=== PATIENT | male | born 1960 | race Caucasian/White ===

== ENCOUNTER → 2018-01-28 | Outpatient (CLI) | payer BC ==
[2018-01-28 10:01] LABS: BASO % 0.2 %; BASO ABS # 0.01 K/uL (0-0.2); EOS % 1.3 %; EOS ABS # 0.07 K/uL (0-0.5); HEMATOCRIT 44.1 % (42-52); HEMOGLOBIN 15.4 g/dL (14.0-18.0); IG# 0.01 K/uL (0.00-0.02); LYMPH % 7.6 %; LYMPH ABS # 0.42 K/uL (1.2-3.4); MEAN CELL VOLUME 89.1 fL (80-100); MEAN CORPUSCULAR HEMOGLOBIN 31.1 pg (25-34); MEAN CORPUSCULAR HGB CONC 34.9 g/dl (32-36); MEAN PLATELET VOLUME 10.7 fL (7.4-10.4); MONO % 11.3 %; MONO ABS # 0.63 K/uL (0.11-0.59); NEUT % 79.4 %; NEUT ABS # 4.42 K/uL (1.4-6.5); PLATELET COUNT 198 K/uL (130-400); RED CELL DISTRIBUTION WIDTH CV 12.9 % (11.5-14.5); WHITE BLOOD COUNT 5.56 K/uL (4.8-10.8)
[2018-01-28 10:35] LABS: ALBUMIN 3.7 gm/dl (3.4-5.0); ALT/SGPT 21 U/L (12-78); BLOOD UREA NITROGEN 12 mg/dl (7-18); CALCIUM 9.3 mg/dl (8.5-10.1); CARBON DIOXIDE 29 mmol/L (21-32); CREATININE 0.72 mg/dl (0.60-1.40); GLUCOSE 89 mg/dl (70-99); POTASSIUM 4.3 mmol/L (3.5-5.1); SODIUM 139 mmol/L (136-145)
[2018-01-28 10:40] LABS: ALKALINE PHOSPHATASE 73 U/L (45-117); AST/SGOT 12 U/L (15-37); TOTAL PROTEIN 7.2 gm/dl (6.4-8.2)
== END | disposition home or self-care (01) ==
LOC: C.LAB 09:13
PROVIDERS: ATTEND Internal Medicine Hematology
DX: C82.13 Follicular lymphoma grade II, intra-abdominal lymph nodes (principal); Z80.42 Family history of malignant neoplasm of prostate; Z11.59 Encounter for screening for other viral diseases

== ENCOUNTER → 2018-02-04 | Outpatient (CLI) | payer BC ==
--- NOTE | 2018-02-04 12:45 | DIAGNOSTIC IMAGING REPORT ---
ABDOMEN FOR HERNIA HISTORY: 57 years-old Male R19.03 Right lower quadrant abdominal swelling acute swelling of the right inguinal region COMPARISON: CT abdomen and pelvis 06/17/2014 TECHNIQUE: Multiple real-time sonographic images of the right inguinal region were obtained assessing grayscale appearance. FINDINGS: Small fat filled reducible right inguinal hernia is noted. No bowel loops are identified extending into the hernia sac. No focal fluid collections or suspicious mass lesions. IMPRESSION: Small reducible fat filled right inguinal hernia. The above report was generated using voice recognition software. It may contain grammatical, syntax or spelling errors. Electronically signed by: Brodie Hickey M.D. 02/04/2018 12:44 PM Dictated Date/Time: 02/04/2018 12:42 PM
== END | disposition home or self-care (01) ==
LOC: C.ULTRBC 12:00
PROVIDERS: ATTEND Internal Medicine
DX: R19.03 Right lower quadrant abdominal swelling, mass and lump (principal); K40.90 Unilateral inguinal hernia, without obstruction or gangrene, not specified as recurrent

== ENCOUNTER → 2018-03-10 | Day surgery (SDC) | payer BC ==
[2018-02-23 08:13] VITALS: Ht 190.5 cm; Wt 108.2 kg
--- NOTE | 2018-02-23 08:45 | PAT Medication Instructions ---
Service Date Feb 23, 2018. Current Home Medication List Metoprolol Succinate (Metoprolol Succinate ER), 1 TAB PO QAM Multivitamin (Multivitamin), 1 TAB PO QAM Medication Instructions For Your Scheduled Surgery - Hold the following medications the morning of surgery: Multivitamin (Multivitamin), 1 TAB PO QAM - Take the following medications the morning of surgery with a sip of water: Metoprolol Succinate (Metoprolol Succinate ER), 1 TAB PO QAM If you have any questions please call us at [phone] or [phone] or [phone]
--- NOTE | 2018-02-23 09:33 | DIAGNOSTIC IMAGING REPORT ---
CHEST 2 VIEWS ROUTINE CLINICAL HISTORY: PAT preoperative evaluation COMPARISON STUDY: 06/21/2016 FINDINGS: The bones soft tissues and hemidiaphragms are normal. The cardiomediastinal silhouette is normal. The lungs are clear. The pulmonary vasculature is normal. IMPRESSION: Negative chest. The above report was generated using voice recognition software. It may contain grammatical, syntax or spelling errors. Electronically signed by: Brandon Mccann M.D. 02/23/2018 9:32 AM Dictated Date/Time: 02/23/2018 9:32 AM
[~2018-03-10] VITALS: Ht 190.5 cm; Wt 108.2 kg
[~2018-03-10] MED LIST: FENTANYL CITRATE INJ 50 MCG/1 ML 2 ML VIAL ONE; LACTATED RINGER'S 1000ML 1,000 ML IV SCH; LIDOCAINE 2% 20 MG/ML 5ML SYR IV ONE; MIDAZOLAM HCL 1 MG/ML 2ML VIAL ONE; MULT-506 PO; PROPOFOL IV EMULSION 10 MG/ML 20 ML VIAL IV ONE; ROCURONIUM BROMIDE 10 MG/ML 5 ML VIAL IV ONE; TPRSR/25 PO
[2018-03-10 07:22] VITALS: BP 148/95; PULSE 75; TEMP 36.4; O2SAT 99
--- NOTE | 2018-03-10 08:22 | History & Physical Bridge Note ---
H&P Re-Evaluation Bridge Note: I have examined the patient, reviewed the History & Physical and in the interval since the performance of the History & Physical I have noted the following changes of clinical significance: No changes noted pt shaved right groin area( himself) 1 week ago area shows punctate area of redness without drainage suspicious of possible skin inflammation, do not want to proceed with elective surgery especially if mesh may need placed will cancel surgery for today reschedule natasha 2 weeks
== END | disposition home or self-care (01) ==
LOC: C.ACU 06:51
PROVIDERS: ATTEND Surgery
DX: K40.90 Unilateral inguinal hernia, without obstruction or gangrene, not specified as recurrent (principal); Z53.09 Procedure and treatment not carried out because of other contraindication

== ENCOUNTER → 2018-03-19 | Day surgery (SDC) | payer BC ==
[2018-03-18 08:13] VITALS: BMI 29.0
[~2018-03-19] VITALS: Ht 190.5 cm; Wt 108.2 kg
[~2018-03-19] MED LIST changes: +ATROPINE SULFATE 0.1 MG/ML 5ML SYR IV PRN; +BACITRACIN 50000 UNIT VIAL ONE; +BUPIVACAINE 0.5 % 5 MG/1 ML MPF 30ML VIAL ONE; +CEFAZOLIN SOD 1 GM VIAL ONE; +DEXAMETHASONE SOD INJ 4 MG/ML VIAL ONE; +EpHEDrine SULFATE 50MG/5ML SYR ONE; +EpHEDrine SULFATE INJ 50 MG/ML AMP IV PRN; +FENTANYL CITRATE INJ 50 MCG/1 ML 2 ML VIAL IV PRN; +GLYCOPYRROLATE INJ 0.2 MG/ML VIAL ONE; +HYDROmorphone INJ 2 MG/ML SYR/VIAL IV PRN; -LIDOCAINE 2% 20 MG/ML 5ML SYR IV ONE; +LIDOCAINE HCL 2% 2 ML VIAL (20MG/ML) ONE; +MoRPHine SULFATE 2 MG/ML CARP IV PRN; +NEOSTIGMINE METHYLSULFATE 5 MG/5 ML SYR ONE; +ONDANSETRON INJ 2 MG/ML 2 ML VIAL IV PRN; +ONDANSETRON INJ 2 MG/ML 2 ML VIAL ONE; +OXYC-57 PO; +OXYCODONE/ACETAMINOPHEN 5-325 TAB PO PRN; +PHENYLEPHRINE 100MCG/ML 5ML SYR IV PRN; +PHENYLEPHRINE 100MCG/ML 5ML SYR ONE; +PROMETHAZINE HCL INJ 12.5 MG in SODIUM CHLORIDE 0.9% 50ML 50 ML IV PRN
[2018-03-19 07:48] VITALS: Ht 190.5 cm; Wt 108.2 kg
--- NOTE | 2018-03-19 09:14 | History & Physical Bridge Note ---
H&P Re-Evaluation Bridge Note: I have examined the patient, reviewed the History & Physical and in the interval since the performance of the History & Physical I have noted the following changes of clinical significance: No changes noted pt marked SO at bedside all questions answered
--- NOTE | 2018-03-19 09:14 | Discharge Instructions ---
Discharge Instructions Date of Service Mar 19, 2018. Visit Reason for Visit: Right Inguinal Hernia Discharge Discharge Diagnosis / Problem: hernia repair Discharge Goals Goal(s): Decrease discomfort Activity Recommendations Activity Limitations: as noted below Lifting Limitations: no more than 10 pounds Shower/Bathe: tomorrow Driving or Machine Use: resume 3 days after discharge Anesthesia . Post Anesthesia Instructions: If you have had General Anesthesia or IV Sedation: * Do not drive today. * Resume driving when surgeon permits. * Do not make important decisions or sign legal documents today. * Call surgeon for: 1. Temperature elevations greater than 101 degrees F. 2. Uncontrollable pain. 3. Excessive bleeding. 4. Persistent nausea and vomiting. 5. Medication intolerance (nausea, vomiting or rash). * For nausea and vomiting use only clear liquids such as: tea, soda, bouillon until nausea subsides, then gradually increase diet as tolerated. * If you have any concerns or questions, call your surgeon's office. If physician is unavailable and it is an emergency, call 911 or go to the nearest emergency room. . Instructions / Follow-Up Instructions / Follow-Up Dr. Guerrier in 1 week, call [phone] if you need to schedule an appt or have any questions Ice right groin off and on every 20 minutes until bedtime Diet Recommendations Recommended Home Diet: no limitations Pending Studies Studies pending at discharge: no Medical Emergencies . Who to Call and When: Medical Emergencies: If at any time you feel your situation is an emergency, please call 911 immediately. . Non-Emergent Contact Non-Emergency issues call your: Surgeon Call Non-Emergent contact if: you have a fever, temperature is above 101.5, your pain is not controlled, wound has increased redness, you have any medication questions . . "Provider Documentation" section prepared by John Robles. .
--- NOTE | 2018-03-19 10:22 | [facility] Post Operative Brief Note ---
Immediate Operative Summary Operative Date Mar 19, 2018. Pre-Operative Diagnosis Right inguinal hernia Post-Operative Diagnosis Right direct inguinal hernia, with lipoma of cord Procedure(s) Performed Open Right Inguinal Hernia Repair with Mesh marlex Surgeon Dr. Guerrier Methods Time Analyst Surgeon(s) Peyton Mars PA-C Estimated Blood Loss 5 cc Findings See Below large lipoma cord into upper scrotum, direct defect Specimens A: lipoma of cord Anesthesia Type General
--- NOTE | 2018-03-19 11:10 | Anesthesiology Progress Note ---
Anesthesia Post Op Note Date & Time Mar 19, 2018 at 11:10 Vital Signs Pain Intensity: 0 Vital Signs Past 12 Hours Date Time Temp Pulse Resp B/P (MAP) Pulse Ox O2 Delivery O2 Flow Rate FiO2 03/19/18 11:05 56 12 128/79 94 Room Air 03/19/18 10:55 61 11 136/84 97 Oxymask 10 03/19/18 10:45 72 11 140/87 98 Oxymask 10 03/19/18 10:37 36.4 69 8 128/84 97 Oxymask 10 Notes Mental Status: alert / awake / arousable, participated in evaluation Pt Amnestic to Procedure: Yes Nausea / Vomiting: adequately controlled Pain: adequately controlled Airway Patency, RR, SpO2: stable & adequate BP & HR: stable & adequate Hydration State: stable & adequate Anesthetic Complications: no major complications apparent
[2018-03-19 11:23] VITALS: BP 131/78; PULSE 50; TEMP 36.8; O2SAT 96
[2018-03-19 11:53] VITALS: BP 127/79; PULSE 60; TEMP 36.7; O2SAT 98
--- NOTE | 2018-03-19 12:48 | OPERATIVE REPORT ---
DATE OF OPERATION: 03/19/2018 SURGEON: Wei Guerrier M.D. CIVIL SERVICE WORKER: John Robles PA-C. PREOPERATIVE DIAGNOSIS: Right inguinal hernia. POSTOPERATIVE DIAGNOSIS: Right direct inguinal hernia and large lipoma of the cord extending onto the upper scrotum. PROCEDURE: Open repair of right direct hernia with Marlex mesh and excision lipoma of the cord. SUMMARY: The patient was brought into the operating room under general anesthesia. Right lower quadrant was prepped with a scrubbing solution and properly draped. Systemic antibiotics had been given. A small incision parallel to the inguinal ligament after preemptive analgesia, 1% Xylocaine without epinephrine was used to inject two fingerbreadths medial anterior superior iliac crest subfascially external oblique. An incision was made, deepened to subcutaneous tissue. A large vein was identified and likely then divided, dissected down onto the external oblique. More local was used along the external oblique. This was opened along the course of its fibers. It was elevated. We cut it up to the external ring. It was identified at this point direction before even cutting onto the external ring. We could see right at the distal to the external ring some incarcerated fatty tissue. Once freed up the external ring and divide externally, we were able to elevate the cord and the structure and the patient had significant amount of lipomatous tissue, which would sock turner to be a lipoma of the cord, extending well beyond the opening of the external ring, therefore minimally incarcerating. We then took this all the way back to the base and ligated it and divided it. The opening was around the indirect area which once we returned retroperitoneally, we approximated some cremasteric fibers to close around the cord. The patient had a direct weakness. There was no indirect hernia. At this point, a sheet of Marlex mesh was brought on the field, sutured appropriately the symphysis pubis, shelving portion of the inguinal ring above the conjoined tendon to reconstruct the internal ring that could only accommodate the tip of a hemostat. Hemostasis was satisfactory. We were able then to put more local as a field block. Then, we closed the external oblique on top of the mesh and the cord with interrupted 3-0 silk suture. The patient never had really a significant nerve identified. The patient had a few fibrous strands that most likely was the ilioinguinal nerve and we were able to divide this to avoid any entrapment. We reconstructed the external ring that could accommodate the tip of a hemostat. The wound was closed with 2-0 Dexon, alexsandra for skin edges. Dressing was applied. The procedure was tolerated well by the patient. Estimated blood loss approximately 5 mL. The patient was taken to recovery room in good condition. I attest to the content of the Intraoperative Record and any orders documented therein. Any exception s are noted below.
== END | disposition home or self-care (01) ==
LOC: C.ACU 07:23
PROVIDERS: ATTEND Surgery
DX: K40.90 Unilateral inguinal hernia, without obstruction or gangrene, not specified as recurrent (principal); D17.6 Benign lipomatous neoplasm of spermatic cord; M19.90 Unspecified osteoarthritis, unspecified site; I10 Essential (primary) hypertension; M45.9 Ankylosing spondylitis of unspecified sites in spine; Z79.899 Other long term (current) drug therapy; Z85.72 Personal history of non-Hodgkin lymphomas; Z92.21 Personal history of antineoplastic chemotherapy; Z98.52 Vasectomy status; Z83.3 Family history of diabetes mellitus; Z80.42 Family history of malignant neoplasm of prostate; Z82.49 Family history of ischemic heart disease and other diseases of the circulatory system; Z80.0 Family history of malignant neoplasm of digestive organs

== ENCOUNTER → 2018-04-13 | Outpatient (CLI) | payer BC ==
[~2018-04-13] MED LIST changes: -ATROPINE SULFATE 0.1 MG/ML 5ML SYR IV PRN; -BACITRACIN 50000 UNIT VIAL ONE; -BUPIVACAINE 0.5 % 5 MG/1 ML MPF 30ML VIAL ONE; -CEFAZOLIN SOD 1 GM VIAL ONE; -DEXAMETHASONE SOD INJ 4 MG/ML VIAL ONE; -EpHEDrine SULFATE 50MG/5ML SYR ONE; -EpHEDrine SULFATE INJ 50 MG/ML AMP IV PRN; -FENTANYL CITRATE INJ 50 MCG/1 ML 2 ML VIAL IV PRN; -FENTANYL CITRATE INJ 50 MCG/1 ML 2 ML VIAL ONE; -GLYCOPYRROLATE INJ 0.2 MG/ML VIAL ONE; -HYDROmorphone INJ 2 MG/ML SYR/VIAL IV PRN; -LACTATED RINGER'S 1000ML 1,000 ML IV SCH; -LIDOCAINE HCL 2% 2 ML VIAL (20MG/ML) ONE; -MIDAZOLAM HCL 1 MG/ML 2ML VIAL ONE; -MoRPHine SULFATE 2 MG/ML CARP IV PRN; -NEOSTIGMINE METHYLSULFATE 5 MG/5 ML SYR ONE; -ONDANSETRON INJ 2 MG/ML 2 ML VIAL IV PRN; -ONDANSETRON INJ 2 MG/ML 2 ML VIAL ONE; -OXYCODONE/ACETAMINOPHEN 5-325 TAB PO PRN; -PHENYLEPHRINE 100MCG/ML 5ML SYR IV PRN; -PHENYLEPHRINE 100MCG/ML 5ML SYR ONE; -PROMETHAZINE HCL INJ 12.5 MG in SODIUM CHLORIDE 0.9% 50ML 50 ML IV PRN; -PROPOFOL IV EMULSION 10 MG/ML 20 ML VIAL IV ONE; -ROCURONIUM BROMIDE 10 MG/ML 5 ML VIAL IV ONE
== END | disposition home or self-care (01) ==
LOC: C.LABPBG 08:42
PROVIDERS: ATTEND Internal Medicine
DX: Z13.220 Encounter for screening for lipoid disorders (principal)